=== PATIENT | male | born 1995 | race Caucasian/White ===

== ENCOUNTER 2017-05-14 22:28 | Emergency (ER) | payer BC, SELFPAY ==
[2017-05-14] MEDS ORDERED: Azithromycin 250 MG TAB ONE (23:01)
[2017-05-14] MEDS ORDERED: Ondansetron ODT 4 MG TAB ONE (23:01)
== END 2017-05-14 23:05 | disposition home or self-care (01) ==
LOC: NAV ERS 22:28
DX: J02.9 Acute pharyngitis, unspecified (principal); J20.9 Acute bronchitis, unspecified
CPT/HCPCS: 87081; 87430; 99283; Q0162

== ENCOUNTER 2017-08-21 21:47 | Emergency (ER) | payer BC ==
[2017-08-21] MEDS ORDERED: Sodium Chloride 0.9% 1,000 ML ONE (22:49)
[2017-08-21] MEDS ORDERED: Acetaminophen 500 MG TAB ONE (22:49)
[2017-08-21] MEDS ORDERED: Ondansetron HCl/PF 4 MG/2 ML Vial ONE (22:49)
[2017-08-21 22:50] LABS: #Basophils 0.1 thou/uL (0.0-0.2); #Lymphocytes 2.5 thou/uL (1.20-3.40); #Monocytes 0.9 thou/uL (0.11-0.59); #Neutrophils 9.3 thou/uL (1.40-6.50); %Basophils 0.8 % (0.0-1.0); %Eosinophils 0.3 % (0.0-10.0); %Lymphocytes 19.7 % (21.0-51.0); %Neutrophils 72.2 % (42.0-75.0); Hemoglobin 15.2 g/dL (14.0-18.0); Mean Corpuscular HGB CONC 33.6 g/dL (32.0-36.0); Mean Corpuscular Hemoglobin 28.9 pg (27.0-31.0); Mean Corpuscular Volume 85.8 fl (80.0-94.0); Platelet Count 251 thou/uL (130-400); RBC Distribution Width 11.6 % (11.5-14.5); Red Blood Cell (RBC) Count 5.27 mill/uL (4.70-6.10); White Blood Cell (WBC) Count 12.8 thou/uL (4.8-10.8)
[2017-08-21 23:12] LABS: ALT (SGPT) 56 U/L (8-55); AST (SGOT) 31 U/L (5-34); Albumin 4.5 g/dL (3.5-5.0); Alkaline Phosphatase 50 U/L (40-150); Anion Gap 17 mmol/L (10-20); BUN (Urea Nitrogen) 20 mg/dL (8.9-20.6); Bilirubin, Total 0.4 mg/dL (0.2-1.2); CK (CPK) 523 U/L (30-200); CKMB 4.2 ng/mL (0-6.6); Calc. Creatinine Clearance 0 mL/min (70-130); Calcium 9.4 mg/dL (7.8-10.44); Carbon Dioxide 21 mmol/L (22-29); Chloride 106 mmol/L (98-107); Estimated GFR-MDRD 74; Globulin 2.9 g/dL (2.4-3.5); Glucose 101 mg/dL (70-105); Potassium 3.9 mmol/L (3.5-5.1); Protein, Total 7.4 g/dL (6.0-8.3); Sodium 140 mmol/L (136-145); Troponin I 0.031 ng/mL (< 0.028)
[2017-08-21 23:42] LABS: Bilirubin Negative (Negative); Blood, Urine Negative (Negative); Clarity Clear (Clear); Glucose, Urine (Dipstick) Negative (Negative); Leukocyte Negative (Negative); Nitrite Negative (Negative); Protein, Urine (Dipstick) Negative (Neg-Trace); pH, Urine 6.5 (5.0-9.0)
== END 2017-08-22 00:12 | disposition home or self-care (01) ==
LOC: NAV ERS 21:47
DX: M62.82 Rhabdomyolysis (principal); F43.10 Post-traumatic stress disorder, unspecified
CPT/HCPCS: 36415; 80053; 81003; 82553; 84484; 85025; 93005; 96361; 96374; J2405; J7050

== ENCOUNTER 2018-05-28 22:57 | Emergency (ER) | payer BC, OTHER ==
[2018-05-28] MEDS ORDERED: Sulfameth/Trimethoprim DS 800-160mg TAB ONE (23:55)
[2018-05-28] MEDS ORDERED: Amoxicillin/Potassium Clav 875 MG TAB ONE (23:55)
== END 2018-05-29 00:03 | disposition home or self-care (01) ==
LOC: NAV ERS 22:57
DX: L03.316 Cellulitis of umbilicus (principal); F43.10 Post-traumatic stress disorder, unspecified; Z79.899 Other long term (current) drug therapy
CPT/HCPCS: 99283

== ENCOUNTER 2018-07-26 20:34 | Emergency (ER) | payer BC ==
[2018-07-26] MEDS ORDERED: diphenhydrAMINE 50 MG/ML VIAL ONE (22:37)
[2018-07-26] MEDS ORDERED: Sodium Chloride 0.9% 1,000 ML ONE (22:37)
[2018-07-26] MEDS ORDERED: Metoclopramide HCl 10 MG/2 ML VIAL ONE (22:37)
[2018-07-26 22:47] LABS: #Basophils 0.1 thou/uL (0.0-0.2); #Lymphocytes 2.4 thou/uL (1.20-3.40); #Neutrophils 10.6 thou/uL (1.40-6.50); %Eosinophils 0.3 % (0.0-10.0); %Lymphocytes 16.9 % (21.0-51.0); %Monocytes 7.1 % (0.0-10.0); %Neutrophils 74.7 % (42.0-75.0); Hemoglobin 15.7 g/dL (14.0-18.0); Mean Corpuscular HGB CONC 33.2 g/dL (32.0-36.0); Mean Corpuscular Hemoglobin 27.9 pg (27.0-31.0); Mean Corpuscular Volume 83.8 fL (78.0-98.0); Mean Platelet Volume 7.4 fL (7.4-10.4); Platelet Count 331 thou/uL (130-400); RBC Distribution Width 11.5 % (11.5-14.5); Red Blood Cell (RBC) Count 5.63 mill/uL (4.70-6.10); White Blood Cell (WBC) Count 14.2 thou/uL (4.8-10.8)
[2018-07-26 22:59] LABS: ALT (SGPT) 42 U/L (8-55); AST (SGOT) 19 U/L (5-34); Albumin 4.7 g/dL (3.5-5.0); Alkaline Phosphatase 71 U/L (40-150); Anion Gap 17 mmol/L (10-20); BUN (Urea Nitrogen) 11 mg/dL (8.9-20.6); Bilirubin, Total 0.5 mg/dL (0.2-1.2); Calc. Creatinine Clearance 0 mL/min (70-130); Carbon Dioxide 22 mmol/L (22-29); Chloride 103 mmol/L (98-107); Estimated GFR-MDRD Greater than 90; Glucose 96 mg/dL (70-105); Lipase 40 U/L (8-78); Protein, Total 7.7 g/dL (6.0-8.3); Sodium 138 mmol/L (136-145)
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
== END 2018-07-27 01:20 | disposition home or self-care (01) ==
LOC: NAV ERS 20:34
DX: G89.18 Other acute postprocedural pain (principal); R51 Headache; M54.9 Dorsalgia, unspecified; Z79.899 Other long term (current) drug therapy; Z79.891 Long term (current) use of opiate analgesic
CPT/HCPCS: 70450; 80053; 83690; 85025; 96365; 96375; J1200; J2765; J7050

== ENCOUNTER 2019-11-05 23:57 | Emergency (ER) | payer BC, SELFPAY ==
[2019-11-06] MEDS ORDERED: Acetaminophen 500 MG TAB ONE (00:13)
== END 2019-11-06 00:20 | disposition home or self-care (01) ==
LOC: NAV ERS 23:57
DX: H65.91 Unspecified nonsuppurative otitis media, right ear (principal); F17.220 Nicotine dependence, chewing tobacco, uncomplicated
CPT/HCPCS: 99282

== ENCOUNTER 2020-11-18 14:13 | Emergency (ER) | payer BC ==
[2020-11-19 02:09] LABS: SARS-CoV-2 MS2 Positive; SARS-CoV-2 N Gene Negative; SARS-CoV-2 S Gene Negative; SARS-CoV-2 by NAA Not Detected (NotDetected); SARS-CoV-2 orf1ab Negative
== END 2020-11-18 15:43 | disposition home or self-care (01) ==
LOC: NAV ERS 14:13
DX: R19.7 Diarrhea, unspecified (principal); R51.9 Headache, unspecified; R68.83 Chills (without fever); R11.0 Nausea; Z20.828 Contact with and (suspected) exposure to other viral communicable diseases; F17.200 Nicotine dependence, unspecified, uncomplicated
CPT/HCPCS: 87635; 99284; U0003